=== PATIENT | male | born 1945 | race Caucasian/White ===

== ENCOUNTER 2017-01-17 15:44 | Emergency (ER) | payer MEDICARE ==
[2017-01-17] MEDS ORDERED: DIPHTH,PERTUSS(ACELL),TET TOX 0.5 ML DISP.SYRIN. VAX IM ONE (17:00)
--- NOTE | 2017-01-17 17:20 | PHYS DOC ---
General Chief Complaint: LACERATION/AVULSION Stated Complaint: LACERATION LEFT ARM Time Seen by MD: 15:54 Source: patient Exam Limitations: no limitations Problems: History of Present Illness Initial Comments Patient is a 71-year-old male who comes to the ED complaining of left arm laceration. Patient states immediately prior to arrival he was trying to start a lower with a pull start mechanism. He states that on one of the attempts to start the blower his dorsal left forearm accidentally made contact with the fiberglass canopy overlying his [employer]. There was some mild bleeding initially and the patient states that while moderately uncomfortable for a short time however upon ED arrival there is no bleeding and the patient denies any pain complaints. He admits his tetanus status is greater than 10 years and denies any other complaints. Patient does have history of hypertension on arrival his blood pressure is 159/ 100 he denies any symptoms resulted from the elevated blood pressure. His blood pressures did improve throughout the ED course and upon discharge without any intervention his pressure was 125/74. Onset: just prior to arrival Severity: moderate Pain/Injury Location: left forearm Method of Injury: direct blow Modifying Factors: worse with jarring, worse with movement, improves with rest Allergies: Coded Allergies: No Known Drug Allergies (Unverified , 01/17/17) Past Medical History Medical History: hypertension Surgical History: noncontributory Social History Smoker: non-smoker Alcohol: occasionally Drugs: none Review of Systems Constitutional: denies chills, denies diaphoresis, denies fever, denies malaise , denies weakness EENTM: denies eye pain, denies blurred vision Respiratory: denies cough, denies shortness of breath Cardiovascular: denies chest pain, denies palpitations, denies syncope Gastrointestinal: denies nausea, denies vomiting Musculoskeletal: see HPI, denies back pain, denies joint swelling, denies neck pain Skin: see HPI Psychiatric/Neurological: denies headache, denies numbness, denies paresthesia , denies weakness Physical Exam General Appearance: WD/WN, no apparent distress HEENT: normal ENT inspection Neck: non-tender, supple Cardiovascular/Respiratory: normal peripheral pulses, no respiratory distress Back: no vertebral tenderness Shoulder: normal inspection, non-tender Elbow/Forearm: abrasions (there is a moderate-sized skin avulsion and his dorsal left forearm, it is approximately 4 cm in length and very superficial. It appears that there is missing skin tissue and the edges do not approximate the tissue is very friable. There is no foreign bodies no active bleeding) Wrist: normal inspection, non-tender Neurologic/Tendon: normal sensation, normal motor functions, normal tendon functions, responds to pain, no evidence tendon injury Psychiatric: alert, oriented x 3 Skin: warm/dry (skin avulsions of the left arm as above) Orders, Labs, Meds The wound was cleansed by RN. I discussed treatment options the patient is agreeable no wound repair necessary with this superficial avulsion. I discussed wound care at length with the patient and his spouse as well as indications to return for further evaluation. Bactroban ointment and sterile nonstick dressing was applied by the RN and patient was discharged home in good condition with blood pressure normalizing to 125/74 without intervention. Tetanus vaccination was given Departure Time of Disposition: 17:19 Disposition: 01 HOME, SELF-CARE Diagnosis: left forearm skin avulsion Condition: GOOD Patient Instructions: Deep Skin Avulsion, VIS, Tetanus, Diphtheria, and Pertussis (Tdap) - CDC Additional Instructions: Keep covered with sterile dressing until completely healed. Wash twice daily with soap and warm water, blot dry. Change dressing and apply bactroban ointment after each wash. Allow wound to air dry one hour daily. Rx: bactroban ointment Follow up with a doctor Sunday for wound check. Return to ED with new or changing symptoms. RICHI VINSON DO Jan 17, 2017 17:20
[2017-01-17] MEDS ORDERED: MUPI15CR TP (17:22)
[2017-01-17 17:30] VITALS: BP 125/74
[2017-01-17] MEDS ORDERED: MUPIROCIN 2% TOPICAL OINTMENT 22GM TUBE. TP ONE (17:30)
== END 2017-01-17 17:30 | disposition home or self-care (01) ==
LOC: ER 15:44
DX: S51.812A Laceration without foreign body of left forearm, initial encounter (principal); I10 Essential (primary) hypertension; W25.XXXA Contact with sharp glass, initial encounter; Y93.89 Activity, other specified; Y99.8 Other external cause status; Y92.89 Other specified places as the place of occurrence of the external cause
CPT/HCPCS: 90471; 90715; 99283-25